=== PATIENT | male | born 2005 | race Caucasian/White ===

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

== ENCOUNTER 2025-06-02 10:24 | Outpatient (REF) | payer OTHER, SELFPAY ==
[2025-06-02 18:27] LABS: MANUAL DIFF FLAG NO
[2025-06-02 18:59] LABS: Hematocrit 45.6 % (42.0-52.0); Hemoglobin 15.0 g/dl (14.0-18.0); Imm Gran Abs Auto 0.03 X10*3/uL (0.00-0.03); Imm Gran Pct Auto 0.4 % (0.0-0.4); Lymphocytes Absolute Auto 1.9 X10*3/uL (1.2-4.9); Mean Corpuscular HGB Conc 32.9 g/dl (31.0-36.0); Mean Corpuscular Hemoglobin 30.5 pg (27.0-33.0); Mean Corpuscular Volume 92.9 fL (80.0-98.0); NRBC Abs Auto 0.000 X10*3/uL (0.0-0.012); NRBC Pct Auto 0.0 /100WBC (0.0-0.2); Platelet Count 263 X10*3/uL (160-400); Red Blood Count 4.91 X10*6/uL (4.60-5.80); White Blood Count 7.0 X10*3/uL (4.8-10.8)
[2025-06-02 19:35] LABS: Appearance Urine Clear; Glucose Urine UA Negative (Negative); PH 8.0 (5.0-9.0); Specific Gravity - Urine 1.020 (1.005-1.025)
[2025-06-02 20:00] LABS: Alanine Aminotransferase 23 U/L (0-40); Albumin Level 5.0 g/dL (3.5-5.0); Alkaline Phosphatase 38 U/L (39-117); Anion Gap 13 (12-20); Aspartate Amino Transferase 27 U/L (5-37); Blood Urea Nitrogen 13 mg/dL (9-16); Calcium 9.7 mg/dL (8.4-10.2); Carbon Dioxide 27 mmol/L (22-29); Chloride 105 mmol/L (96-108); Cholesterol 142 mg/dL (<200); Estimated Glomerular Filt Rate > 60; HDL Cholesterol 59 mg/dL (>40); Magnesium 2.1 mg/dL (1.6-2.6); Potassium 4.6 mmol/L (3.3-5.1); Sodium 140 mmol/L (135-145); Total Protein 6.9 g/dL (6.5-8.0); Triglycerides 40 mg/dL (<150)
[2025-06-02 20:23] LABS: Folate 4.4 ng/mL (> or = 4.0); Vitamin B12 1535 pg/mL (200-900)
[2025-06-03 09:19] LABS: HBS Num1 23.52 mIU/mL (0-7.99); HBsAGNum1 0.40 S/CO (0.00-0.99); HIV Num 1 0.05 S/CO (0.00-0.99); Hepatitis B Surface Antigen Negative (Negative); Syphilis Screen Nonreactive (Nonreactive); ~HepC Num1 0.10 S/CO (0.00-0.79); ~Hepatitis B Surface Antibody REACTIVE (Nonreactive); ~Hepatitis C Antibody Nonreactive (Nonreactive)
[2025-06-03 10:05] LABS: CT PCR Urine NOT DETECTED (Not Detect.); NG PCR Urine NOT DETECTED (Not Detect.)
[2025-06-06 16:32] LABS: VITAMIN D (1,25 OH) D3 28 pg/mL; Vit D (1,25-Dihydroxy) Total 28 pg/mL (18-72); Vitamin D (1,25 OH) D2 <8 pg/mL
== END 2025-06-02 10:25 | disposition home or self-care (01) ==
LOC: HO.HKASLDS 10:24
PROVIDERS: PCP Student in an Organized Health Care Education/Training Program; Visit Provider Student in an Organized Health Care Education/Training Program
DX: Z13.9 Encounter for screening, unspecified (principal); R55 Syncope and collapse; F12.90 Cannabis use, unspecified, uncomplicated; Z72.0 Tobacco use
CPT/HCPCS: 80053; 80061; 81003; 82607; 82652; 82746; 83036; 83735; 84443; 85025; 86706; 86780; 86803; 87340; 87389; 87491; 87591

== ENCOUNTER 2025-06-02 10:24 | Outpatient (AMB) | payer OTHER, SELFPAY ==
--- NOTE | 2025-06-02 10:24 | A.OFFPC_ITS ---
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: No Accompanied by: Self / Same As Patient Allergies coconut Allergy (Verified 06/02/25 10:26) Anaphylaxis Penicillins Allergy (Verified 06/02/25 10:26) Hives Medication List - Last Reconciled 06/02/25 by Kendall Vlila MD No Known Home Meds Tobacco use date assessed: 06/02/25 Dental Screening Dental Screen Date: 06/02/25 Did you have a dental visit in the last 12 months?: No Did you have a dental problem in the last 6 months where you did not have access to dental care?: No Was dental information given to patient?: No HPI HPI Comments History of Present Illness Details History of Present Illness The patient is a 20 year old male presenting with establishing care and evaluation of fainting spells. Presyncope: The patient reports experiencing fainting spells for the last couple of years, which do not occur frequently. During these episodes, he does not lose consciousness but his vision goes completely dark and his hearing goes out or is significantly reduced. Associated symptoms include becoming pale, experiencing cold sweats, weakness, fatigue, and heart racing. He also notes sweaty fingertips but denies lip tingling. The spells last for a maximum of two minutes and resolve once he sits down for a minute, though he experiences eye strain afterward. The episodes do not have a specific trigger and are different from the occasional lightheadedness he experiences when standing up too quickly. Surgical History: - No history of surgeries. 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 - Substance Use: The patient has been sm oking marijuana for two to three years, consuming about one to two joints per day. - Tobacco Use: He denies smoking cigaret mihaela but reports using a vape. - Sexual History: The patient is sexuall y active with one partner. Family History: - Mother has rheumatoid arthritis. - Maternal aunt has a history of lung ca ncer. Past Medical History - Concussion approximately 8 years ago w [facility]. - Head laceration last year from a work accident. Health Maintenance - Patient is establishing care. - Comprehensive baseline labs ordered as noted above. - Patient declined screening for sexuall y transmitted diseases. - Follow-up in two weeks to review resul ts. [facility] Medical History (Updated 06/02/25 @ 11:05 by Kendall Villa MD) Nicotine use Cannabis use disorder Pre-syncope Family History (Updated 06/02/25 @ 10:32 by Meet Venegas MA) Father No problems noted. Mother Rheumatoid arthritis Social History Housing: House Patient Tobacco Use Status: Never used Tobacco e-Cigarette/Vaping Use: Currently Using service: No Current occupational status: employed Cognitive needs: No Hearing needs: No Vision needs: No Review of Systems Narrative Review of Systems - Neurological: Reports episodes of presyncope characterized by vision and hearing loss for about two years. - Constitutional: Reports associated weakness, fatigue, pallor, and cold sweats during episodes. - Cardiovascular: Reports palpitations during episodes. - HEENT: Reports eye strain following episodes. - Gastrointestinal: Reports occasional upset stomach. - General: Denies any other complaints. 10-point ROS reviewed and negative except as noted in HPI Physical exam (Primary Care) Vital Signs: Last Vital Signs Temp 97.9 F 06/02/25 10:28 Pulse 66 06/02/25 10:28 Resp 16 06/02/25 10:28 BP 131/72 06/02/25 10:28 Pulse Ox 99 06/02/25 10:28 Oxygen Delivery Method Room Air 06/02/25 10:28 BMI result Body Mass Index 24.8 Tobacco/Smoking Status: Tobacco use Status Tobacco use date assessed 06/02/25 06/02/25 10:35 Patient Tobacco Use Status Never used Tobacco 06/02/25 10:35 e-Cigarette/Vaping Use Currently Using 06/02/25 10:35 Narrative Physical Exam General: Well-appearing, in no acute distress. Vital signs: Within normal limits. HEENT: Normocephalic, atraumatic. PERRLA, EOMI. Conjunctiva clear, sclera anicteric. Oropharynx clear, mucous membranes moist. TMs intact bilaterally. Neck: Supple, no lymphadenopathy, no thyromegaly, no JVD or carotid bruits. Cardiovascular: RRR, normal S1/S2, no murmurs, rubs, or gallops. Peripheral pulses 2+ and symmetric. No edema. Respiratory: Lungs clear to auscultation bilaterally, no wheezes, rales, or rhonchi. Normal effort. Abdomen: Soft, non-tender, non-distended. Normoactive bowel sounds. No hepatosplenomegaly, no masses. MSK: Full range of motion, no joint swelling or deformity. Normal gait. Skin: Warm, dry, intact. No rashes, lesions, or pallor. Neuro: Alert and oriented x3. Cranial nerves II-XII intact. Strength 5/5 throughout. Sensation intact. Reflexes 2+ symmetric. Normal coordination and gait. Psych: Appropriate mood and affect. Normal judgment and insight. Coding Level of Care Code New Pt Level 4 (40760) Diagnoses Pre-syncope R55 Cannabis use disorder F12.90 Nicotine use Z72.0 Assessment & Plan Assessment & Plan (1) Pre-syncope: Code(s): R55 - Syncope and collapse Category: Medical (2) Cannabis use disorder: Code(s): F12.90 - Cannabis use, unspecified, uncomplicated Category: Medical (3) Nicotine use: Code(s): Z72.0 - Tobacco use Category: Medical Plan Consent The plan for comprehensive lab work, including its components, was discussed with the patient, who agreed to proceed. Patient was informed and verbally consented to the use of an ambient scribe for clinic note documentation during this visit. Plan 1. 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 - A comprehensive lab workup will be initiated to investigate potential underlying causes. - Lab orders include a comprehensive metabolic panel, complete blood count, B12, folate, vitamin D, hemoglobin A1c, lipids, HIV, hepatitis B, hepatitis C, and thyroid function tests. - Follow-up in two weeks to discuss lab results. 2. Cannabis And Nicotine Use - The patient's use of marijuana and vaping was noted. - smoking cessation discussed Discussion Notes I discussed with the patient that his fainting spells are a concern, especially because of the potential for an accident while he is driving or working. I explained that we need to investigate the cause, and we will start by ordering a comprehensive set of blood tests to check his organ function, blood counts, vitamin levels, blood sugar, and thyroid. We will get a baseline on his health and then determine the next steps based on the results. I advised him we will meet in two weeks to review the lab findings. Patient Instructions - Please go to the lab to have your blood drawn for the tests we discussed. - Schedule a follow-up appointment in two weeks to talk about your results. - Be careful when you are working or driving, as these fainting spells could happen at a dangerous time. - If you feel a spell coming on, sit down immediately to prevent falls or accidents. Medical Decision Making The patient is a 20-year-old male establishing care with a primary complaint of recurrent presyncopal episodes over the past two years. 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 The initial differential diagnosis includes vasovagal presyncope, orthostatic hypotension, metabolic disturbances such as hypoglycemia, anemia, and cardiac arrhythmia. A comprehensive laboratory evaluation, including a CMP, CBC, HbA1c, vitamin levels (B12, D, folate), lipids, and thyroid studies, was ordered to rule out common metabolic, ruthie tologic, or endocrine etiologies and to establish a health baseline. The patient's daily cannabis use and vaping are noted and may be contributing factors. A follow-up visit in two weeks will be used to review these results and determine the need for further workup, such as cardiac monitoring. Total Time Statement 30 min Total time spent caring for the patient today includes pre-visit chart review, documentation, review of laboratory and diagnostic imaging results, medication reconciliation, medically necessary evaluation, counseling on diagnoses, care coordination, ordering appropriate tests and medications, review of tests performed by other providers, reporting test results to the patient, and communication with other healthcare providers. Orders: Orders Complete Blood Count Auto Diff Today Z13.9 - Encounter for screening, unspecified Comprehensive Met. Panel Today Z13.9 - Encounter for screening, unspecified Hepatitis C Antibody Today Z13.9 - Encounter for screening, unspecified TSH reflex Free T4 Today Z13.9 - Encounter for screening, unspecified CT NG by PCR Urine Today Z13.9 - Encounter for screening, unspecified UA CC w/rflx Micro + Cult Today Z13.9 - Encounter for screening, unspecified Vitamin B12 and Folate Today Z13.9 - Encounter for screening, unspecified Vitamin D 1,25 dihydroxy Today Z13.9 - Encounter for screening, unspecified Hepatitis B Surface Antibody Today Z13.9 - Encounter for screening, unspecified Hepatitis B Surface Antigen Today Z13.9 - Encounter for screening, unspecified Syphilis Screen Today Z13.9 - Encounter for screening, unspecified HIV Ab/Ag Today Z13.9 - Encounter for screening, unspecified Lipid Panel Today Z13.9 - Encounter for screening, unspecified Hemoglobin A1c Today Z13.9 - Encounter for screening, unspecified Magnesium Today Z13.9 - Encounter for screening, unspecified
[2025-06-02 10:28] VITALS: BP 131/72; PULSE 66; RESP 16; TEMP 36.6; O2SAT 99; BMI 24.8
--- OUTSIDE RECORDS SUMMARY | 2025-06-02 20:05 | XMS_ITS | Clinical Summary ---
Author Organization [facility] Address [address] [place] [id number] Phone Care Team Providers Care Mold Cleaner Name Role Phone Unavailable Primary Care Provider Unavailabl e Allergies Active Allergy Reactions Criticality Noted Date Comments Coconut Flavoring Agent (Non-Screening) 09/29/2020 Penicillins Hives 10/05/2021 Medications No known medications Active Problems Problem Noted Date Diagnosed Date Left ankle sprain 04/16/2022 Overview (04/16/2022): Seen at [facility] ED - x ray negative Decreased hearing of both ears 10/05/2021 Overview (10/05/2021): No cerumen impaction, some fluid Assessment & Plan (10/05/2021 12:48 PM EDT): Referred to Audiology Depression 10/05/2021 Assessment & Plan (10/05/2021 12:56 PM EDT): Seeing a therapist, doing well. Dyslexia 09/29/2020 Overview (09/29/2020): IEP Dysgraphia 09/29/2020 Assessment & Plan (09/29/2020 12:08 PM EDT): Recommended keeping IEP in place through end of highschool. Can ask to be integrated in regular [place] class at next IEP meeting. Attention and concentration deficit 09/29/2020 Assessment & Plan (10/05/2021 12:46 PM EDT): VB for teachers and parents given again Assessment & Plan (09/29/2020 12:10 PM EDT): Appears these concerns predate the current pandemic and virtual learning environment. ADHD can be a co-morbidity with dyslexia as well as sleep issues. Gave set of Vanderbilits to have a few teachers and mom to fill out and return. Influenza vaccine refused 09/29/2020 Overview (09/29/2020): 10/02 Assessment & Plan (09/29/2020 12:11 PM EDT): Declines flu shot today. May call and return for flu shot at any time if changes mind. Immunizations Immunization Administration Dates Next Due DTaP 01/18/2009, 8,04/19/2006,05/16,2005 HPV Vaccine 9 Valent 03/02/2017,02/20/2016 Hep A, ped/adol 03/02/2017,02/20/2016 Hep B, ped/adol 2005, 5,2005,01/13 HiB 01/17/2006, 6,2005,03/16 IPV 01/18/2009, 6,2005,03/16 Influenza, injectable, quadr ivalent, preservative free 05/17/2015 MMR 01/17/2006 MMRV 01/18/2009 Meningococcal Conj (Menactra) MCV4P 10/05/2021,0 02/20/2016 Pneumococcal Conjugate 13-Valent 006,2005,2005,03/16 Tdap 02/19/2018 Varicella 01/17/2006 Family History Medical History Relation Name Comments Learning disabilities Father ADD / ADHD Half-Brother 1 Autism Half-Brother 1 Autism Half-Brother 2 Seizures Half-Brother 2 Anaya's esophagus Maternal Grandfather Diabetes type II Maternal Grandfather Hypertension Maternal Grandfather Hypertension Maternal Grandmother Rheum arthritis Maternal Grandmother Rheum arthritis Mother COPD Paternal Grandmother ADD / ADHD Sister Ana Asthma Sister Ana Seizures Sister Ana as infant Relation Name Status Comments Father Alive Half-Brother 1 Alive Half-Brother 2 Alive Maternal Grandfather Maternal Grandmother Alive Mother Alive Paternal Grandfather Alive Paternal Grandmother Sister Ana Alive Social History Tobacco Use Types Packs/Day Years Used Date Smoking Tobacco: Never Assessed Hunger/Food Answer Date Recorded In the last 12 months, did y ou or your family ever eat less than you felt you should because there wasn't enough money for food? No 10/05/2021 Stable Housing Answer Date Recorded Are you worried that in the next 2 months you may not have stable housing? No 10/05/2021 Transportation Concerns Answer Date Rec orded In the last 12 months, have you or your family ever had to go without healthcare because you didn't have a way to get there? No 10/05/2021 Hazards in Home Answer Date Recorded Think about the place you li ve. Do you have problems with any of the following? Pests (mice or roaches), mold, no/not working smoke detectors, water leaks, no window guards. No 2021 Financing Utilities Answer Date Recorde d In the last 12 months, has t he electric, gas, oil, or water company threatened to shut off your services in your home? No 10/05/2021 Safety at Home Answer Date Recorded Are you or your family worried about feeling saf e in your home? No 10/05/2021 Outside Support Answer Date Recorded Do you feel that you need mo re support from other people or programs to help you care for yourself or your family? No 10/05/2021 Understanding Health Concerns Answer Da te Recorded Do you need help understandi ng your or your child's healthcare needs (diagnosis, medications, plan, etc.)? No 10/05/2021 Financing Health Concerns Answer Date R ecorded In the last 12 months, was t here a time when your child needed to see a doctor or get medications or supplies but could not because of cost? No 10/05/2021 Missing School or Work Answer Date Vern rded Did you or your child miss s chool or work because of a health problem that could have been avoided? No 10/05/2021 Sex and Gender Information Value Date Recorded Sex Assigned at Male 10/05/2021 11:42 AM EDT Legal Sex Male 3:24 PM EST Gender Identity Male 10/05/2021 11:42 AM EDT Sexual Orientation Straight 09/29/2020 11 :45 AM EDT Last Filed Vital Signs Vital Sign Reading Time Taken Comments Blood Pressure 122/70 10/05/2021 11:23 AM EDT Pulse - - Temperature - - Respiratory Rate - - Oxygen Saturation - - Inhaled Oxygen Concentration - - Weight 90.5 kg (199 lb 9.6 oz) 10/05/2021 11:23 AM EDT Height 190.5 cm (6' 3 ) 10/05/2021 11:23 AM EDT Body Mass Index 24.95 10/05/2021 11:23 AM EDT Plan of Treatment Health Maintenance Due Date Last Done Comments Men B Vaccine (1 of 2 - Standard) 2021 Influenza Vaccines (#1) 2025 05/17/2015 COVID-19 Vaccine (3 - 2024-2 6 season) 2025 12/29/2020, 12/08/2020 DTaP,Tdap,and Td Vaccines (7 - Td or Tdap) 02/20/2028 02/19/2018, 01/18/2009, 07/19/2007, Additional history exists Hepatitis B Vaccines Completed 2005, 2005, 2005, Additional history exists HIB Vaccines Completed 01/17/2006, 11/2005, 2005, Additional history exists Pneumococcal Vaccine Completed 01/17/2006, 2005, 2005, Additional history exists IPV Vaccines Completed 01/18/2009, 11/2005, 2005, Additional history exists MMR Vaccines Completed 01/18/2009, 01/17/2006 Varicella Vaccines Completed 01/18/2009, 01/17/2006 HPV Vaccines Completed 03/02/2017, 02/20/2016 Hepatitis A Vaccines Completed 03/02/2017, 02/20/20 16 Meningococcal Vaccine Completed 10/05/2021, 016 Insurance [employer] [place] [id number]
== END 2025-06-02 10:59 | disposition home or self-care (01) ==
LOC: HO.HMCFMS 10:25
PROVIDERS: PCP Student in an Organized Health Care Education/Training Program; Visit Provider Student in an Organized Health Care Education/Training Program
DX: R55 Syncope and collapse (principal); F12.90 Cannabis use, unspecified, uncomplicated; Z72.0 Tobacco use

== ENCOUNTER 2025-06-25 10:38 | Outpatient (AMB) | payer OTHER, SELFPAY ==
[2025-06-25 10:41] VITALS: BP 138/65; PULSE 83; RESP 16; TEMP 36.8; O2SAT 98; BMI 23.5
--- NOTE | 2025-06-25 10:41 | A.OFFPC_ITS ---
Vital Signs 06/25/25 10:41 Height 6 ft 1.23 in Weight 179 lb 2 oz BMI 23.5 BP 138/65 Blood Pressure Location Rt brachial Position Sitting Respiration 16 Pulse 83 Pulse Source Pulse Oximeter Temp 98.2 F Temp Source Oral Pulse Oximetry (%) 98 Oxygen Delivery Method Room Air Intake Visit Reasons: 3 week follow up [employer] Required: No Accompanied by: Self / Same As Patient Allergies coconut Allergy (Verified 06/25/25 10:42) Anaphylaxis Penicillins Allergy (Verified 06/25/25 10:42) Hives Tobacco use date assessed: 06/25/25 Dental Screening Dental Screen Date: 06/25/25 Did you have a dental visit in the last 12 months?: No Did you have a dental problem in the last 6 months where you did not have access to dental care?: No Was dental information given to patient?: No HPI HPI Comments History of Present Illness Details History of Present Illness The patient is a 20-year-old male presenting with fainting spells and potential anxiety attacks. Fainting spells: The patient reports experiencing fainting spells primarily while standing. The onset of symptoms begins with visual disturbances, described as a narrowing or darkening of the visual field, followed by auditory changes with transient loss of hearing. These episodes are accompanied by cold sweats and an increase in heart rate, although he does not describe it as abnormal. The episodes typically resolve after he sits down, and he reports feeling exhausted and sick afterward. He denies complete loss of consciousness or numbness but notes diminished sensory perception during episodes. Anxiety attacks: The patient describes symptoms suggestive of anxiety attacks, including a racing heart, cold sweats, and a familial predisposition to anxiety and depression. He acknowledges a majority of his family members suffer from anxiety disorders, including his mother. He experiences symptoms at least once since the last visit that resolve without lasting effects, and he experiences significant fatigue following these episodes. Surgical History: - None reported Medications: - None reported Social History: - The patient is advised to reduce his r ole at work temporarily to prevent episodes during potentially dangerous activities, like driving. Family History: - Positive for anxiety and depression in the family, including the patient's mother. Diagnostic Results: - EEG: Pending - Echocardiogram: Pending Past Medical History - None reported Health Maintenance - Advised to reduce workload to prevent stress-induced episodes until the resolution of current health concerns. [facility] Medical History (Updated 06/25/25 @ 11:09 by Kendall Villa MD) Family history of anxiety disorder Nicotine use Cannabis use disorder Pre-syncope Family History Father No problems noted. Mother Rheumatoid arthritis Social History Housing: House Patient Tobacco Use Status: Never used Tobacco e-Cigarette/Vaping Use: Currently Using service: No Current occupational status: employed Cognitive needs: No Hearing needs: No Vision needs: No Questionnaire PHQ-9 Over the last 2 weeks, how often have you been bothered by any of the following problems? 1. Little interest or pleasure in doing things: not at all 2. Feeling down, depressed, or hopeless: not at all 3. Trouble falling or staying asleep, or sleeping too much: not at all 4. Feeling tired or having little energy: not at all 5. Poor appetite or overeating: not at all 6. Feeling bad about yourself - or that you are a failure or have let yourself or your family down: not at all 7. Trouble concentrating on things, such as reading the newspaper or watching television: not at all 8. Moving or speaking so slowly that other people could have noticed. Or the opposite - being so fidgety or restless that you have been moving around a lot more than usual: not at all 9. Thoughts that you would be better off or of hurting yourself in some way: not at all Total score: 0 Depression Screening Interpretation: Negative Depression Screening Done: Yes Source: Developed by Drs. Long Laguna, Nasra العراقي, Marcial Sawyer and colleagues, with an educational minda from [employer]. Thrive Questionnaire Date Thrive assessed: 06/25/25 I am a: Patient What is your living situation today?: I have a steady place to live Within the past 12 months, did the food you bought not last and you didn't have the money to get more?: I choose not to answer this question Within the past 12 months, did you worry whether your food would run out before you got money to buy more?: I choose not to answer this question Do you have trouble paying for medicines?: No Do you have trouble getting transportation to medical appointments?: No Do you have trouble paying your heating and electricity bill?: No Do you have trouble taking care of your child, family member or friend?: No Are you currently unemployed and looking for a job?: No Are you interested in more education?: No Please select the resources that you would like help with: None Currently or been in a relationship where the following occur: No concerns reported THRIVE Score: 0 AUDIT C Alcohol Use Questionnaire (AUDIT-C) 1. How often do you have a drink containing alcohol?: Never Total Score: 0 DIMAS-7 AMB Questionnaire DIMAS-7 Date DIMAS - 7 assessed: 06/25/25 Feeling nervous, anxious, or on edge: 0 = Not at all Not being able to stop or control worryin = Not at all Worrying too much about different things: 0 = Not at all Trouble relaxin = Not at all Being so restless that it is hard to sit still: 0 = Not at all Becoming easily annoyed or irritable: 0 = Not at all Feeling afraid as if something awful might happen: 0 = Not at all Total DIMAS-7 score (0-4 normal; 5-9 mild; 10-14 moderate; 15-21 severe): 0 Source: Developed by Drs. Long Laguna, Nasra العراقي, Marcial Sawyer and colleagues, with an educational minda from [employer]. Review of Systems Narrative Review of Systems - Neurological: Reports episodes of visual changes and auditory disturbances during fainting spells. - Mental Health: Reports symptoms suggestive of anxiety attacks, including racing heart and cold sweats. 10-point ROS reviewed and negative except as noted in HPI Physical exam (Primary Care) Vital Signs: Last Vital Signs Temp 98.2 F 06/25/25 10:41 Pulse 83 06/25/25 10:41 Resp 16 06/25/25 10:41 BP 138/65 06/25/25 10:41 Pulse Ox 98 06/25/25 10:41 Oxygen Delivery Method Room Air 06/25/25 10:41 BMI result Body Mass Index 23.5 Tobacco/Smoking Status: Tobacco use Status Tobacco use date assessed 06/25/25 06/25/25 10:47 Patient Tobacco Use Status Never used Tobacco 06/25/25 10:47 e-Cigarette/Vaping Use Currently Using 06/25/25 10:47 PHQ-9: PHQ-9 Score PHQ-9: Total score 0 06/25/25 10:47 Depression Screening Interpretation: Negative Thrive Assessment: Date of Thrive Assessment Date Thrive assessed 06/25/25 06/25/25 10:47 Currently or been in a relationship where the following occur: No concerns reported Narrative Physical Exam General: Well-appearing, in no acute distress. Vital signs: Within normal limits. HEENT: Normocephalic, atraumatic. PERRLA, EOMI. Conjunctiva clear, sclera anicteric. Oropharynx clear, mucous membranes moist. TMs intact bilaterally. Neck: Supple, no lymphadenopathy, no thyromegaly, no JVD or carotid bruits. Cardiovascular: RRR, normal S1/S2, no murmurs, rubs, or gallops. Peripheral pulses 2+ and symmetric. No edema. Respiratory: Lungs clear to auscultation bilaterally, no wheezes, rales, or rhonchi. Normal effort. Abdomen: Soft, non-tender, non-distended. Normoactive bowel sounds. No hepatosplenomegaly, no masses. MSK: Full range of motion, no joint swelling or deformity. Normal gait. Skin: Warm, dry, intact. No rashes, lesions, or pallor. Neuro: Alert and oriented x3. Cranial nerves II-XII intact. Strength 5/5 throughout. Sensation intact. Reflexes 2+ symmetric. Normal coordination and gait. Psych: Appropriate mood and affect. Normal judgment and insight. Patient reports episodes of fainting spells, with symptoms including visual disturbances, hearing changes, cold sweats, and fatigue post-episode. Family history of anxiety and depression noted. Coding Level of Care Code Est Pt Level 3 (78982) Add On Problem Visit Only Diagnoses Pre-syncope R55 Nicotine use Z72.0 Family history of anxiety disorder Z81.8 Assessment & Plan Assessment & Plan (1) Pre-syncope: Code(s): R55 - Syncope and collapse Category: Medical (2) Nicotine use: Code(s): Z72.0 - Tobacco use Category: Medical (3) Family history of anxiety disorder: Code(s): Z81.8 - Family history of other mental and behavioral disorders Category: Medical Plan Consent I explained to the patient the need for an EEG and an echocardiogram to investigate the fainting spells. I discussed the potential risks of fainting spells, such as injury during an episode, and the importance of ruling out neurological or cardiac causes. I informed him about the non-invasive nature of the EEG and echocardiogram, emphasizing their safety and diagnostic value. The patient understood the information provided, had the opportunity to ask questions, and consented to the recommended tests. Patient was informed and verbally consented to the use of an ambient scribe for clinic note documentation during this visit. Plan 1. Routine General Medical Examination - All laboratory results, including CBC, chemistry, liver function, lipid panel, vitamin D, folate, thyroid studies, urinalysis, and STI panel, were reviewed and found to be unremarkable, with the exception of an elevated vitamin B12 level. - The elevated vitamin B12 is clinically insignificant as it is a water-soluble vitamin and any excess is excreted. - The patient was advised to follow up in 6 months or sooner as needed. 2. Fainting Spells - Obtain an EEG to assess for any neurological causes of the fainting spells. - Scheduled echocardiogram to evaluate cardiac function and rule out cardiovascular abnormalities. - Discussed reducing workload to minimize risk and prevent episodes, especially when operating machinery or driving. 3. Anxiety Attacks - Consideration of anxiety as a differential diagnosis, given family history and reported symptoms. - Pending the results of neurological and cardiac evaluations, potential initiation of therapy for anxiety disorders. - Discussed possibility of therapy and temporary modifications at work to minimize stress. Discussion Notes During this visit, I discussed with the patient my diagnostic considerations for his fainting spells and potential anxiety attacks. Given his symptoms and family history, I've recommended an EEG to explore any neurological foundation for the spells, and an echocardiogram to rule out cardiac issues. I advised him to reduce his workload as a precaution to prevent these spells from occurring during dangerous activities. I talked about the need to evaluate for anxiety disorders further, considering his symptoms and family history. I counseled the patient on the importance of follow-up tests and the potential therapy for anxiety, assuring him that these investigations are safe and aimed at clarifying the cause of his symptoms. Patient Instructions - Follow the recommended schedule for EEG and EKG/echocardiogram tests. - Consider reducing work duties temporarily, especially to avoid tasks like driving until episodes are better managed. 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 - Seek medical attention if episodes become more frequent or severe. Medical Decision Making The patient presents with fainting spells, a complex symptom potentially indicating underlying neurological or cardiac conditions, or due to anxiety. His description points towards a combination of fainting spells and anxiety attacks, warranting further evaluation with an EEG and echocardiogram. The likelihood of an anxiety disorder is bolstered by his family history and symptom presentation. Until these episodes are better understood, I've proposed a cautious approach, including adjustments to work responsibilities to mitigate risk. The plan aims to distinguish between potential causes, ensuring safe management and specific treatment routes post-evaluation. Total Time Statement 20 min Total time spent caring for the patient today includes pre-visit chart review, documentation, review of laboratory and diagnostic imaging results, medication reconciliation, medically necessary evaluation, counseling on diagnoses, care coordination, ordering appropriate tests and medications, review of tests performed by other providers, reporting test results to the patient, and communication with other healthcare providers. Orders: Orders EEG Routine Today G40.A09 - Absence epileptic syndrome, not intractable, without status epilepticus CA echo transthoracic complete Today R55 - Syncope and collapse AMB EKG-In Office Today R55 - Syncope and collapse, Z13.6 - Encounter for screening for cardiovascular disorders
== END 2025-06-25 11:18 | disposition home or self-care (01) ==
LOC: HO.HMCFMS 10:39
PROVIDERS: PCP Student in an Organized Health Care Education/Training Program; Visit Provider Student in an Organized Health Care Education/Training Program
DX: R55 Syncope and collapse (principal); Z72.0 Tobacco use; Z81.8 Family history of other mental and behavioral disorders